=== PATIENT | male | born 1960 | race Caucasian/White ===

== ENCOUNTER 2019-09-24 23:32 | Emergency (ER) | payer BC ==
[2019-09-24 23:59] VITALS: BP 141/77; PULSE 99
[2019-09-25] MEDS ORDERED: Nitrofurantoin Monohydrate/Macrocrystalline 100 MG Cap PO ONE (00:07)
--- NOTE | 2019-09-25 00:16 | EDM.PDOC ---
ED HPI GENERAL MEDICAL PROBLEM - General Chief Complaint: Genitourinary Problem Stated Complaint: frequent urination Time Seen by Provider: 09/24/19 23:35 Source of Information: Reports: Patient, Old Records ([facility] chart/EMR) History Limitations: Reports: No Limitations - History of Present Illness INITIAL COMMENTS - FREE TEXT/NARRATIVE: The patient drove himself to the emergency room via private automobile for evaluation of increased urinary frequency and burning since about 17:00 hours this afternoon. He denies any known exposure to infection, gross hematuria, colic, etc. with no symptoms typical of his previous urolithiasis. He has had some fever and chills with temperature of 99.0 prior to arrival, however he has not taken any medications to this point. No recent history of abdominal pain , heartburn, nausea, diarrhea, melena, gross hematochezia, or any food intolerance, including fatty foods, etc.. The patient denies any chest pain/ pressure, heart flutter, dizziness, orthostasis, orthopnea, diaphoresis, paresthesias, recent decreased exercise tolerance, or any other anginal-type symptoms. The patient also denies any recent cough, wheezing, dyspnea, etc.. He has had occasional low back pain during the last couple of days, however. Onset: Today, Gradual Onset Date: 09/25/19 Onset Time: 17:00 Duration: Constant, Getting Worse Location: Reports: Back. Denies: Head, Face, Neck, Chest, Abdomen, Pelvis, Lower Extremity, Left, Lower Extremity, Right, Radiates to Quality: Reports: Ache, Burning, Same as Previous Episode Severity: Mild Improves with: Reports: None Worsens with: Reports: None Context: Reports: Other (As above). Denies: Sick Contact, Trauma Associated Symptoms: Reports: Fever/Chills. Denies: Confusion, Chest Pain, Cough, Diaphoresis, Headaches, Loss of Appetite, Malaise, Nausea/Vomiting, Rash , Shortness of Breath, Weakness Treatments MAGNETIC TAPE WINDER: Reports: Other (see below) (None) Lower Back Pain Score (Numeric/FACES): 2 - Related Data Allergies Allergy/AdvReac Type Severity Reaction Status Date / Time bacitracin Allergy Rash Verified 09/24/19 23:51 [From Neosporin ([id number])] latex Allergy Rash Verified 09/24/19 23:51 neomycin Allergy Rash Verified 09/24/19 23:51 [From Neosporin ([id number])] polymyxin B Allergy Rash Verified 09/24/19 23:51 [From Neosporin ([id number])] corn pollen Allergy Other Uncoded 09/24/19 23:51 Home Meds: Home Meds Aspirin 81 mg PO DAILY 05/24/16 [History] Hydrochlorothiazide 25 mg PO DAILY 05/24/16 [History] Lovastatin [Mevacor] 40 mg PO BEDTIME 05/24/16 [History] Naproxen Sodium [Aleve] 440 mg PO BID 05/24/16 [History] Quinapril [Accupril] 40 mg PO DAILY 05/24/16 [History] amLODIPine Besylate [Amlodipine Besylate] 10 mg PO DAILY 05/24/16 [History] Ubidecarenone [Coq-10] 100 mg PO DAILY 09/24/19 [History] Nitrofurantoin Monohyd/M-Cryst [Macrobid 100 mg Capsule] 100 mg PO BIDMEALS #14 capsule 09/25/19 [Rx] Past Medical History HEENT History: Reports: Allergic Rhinitis, Impaired Vision, Other (See Below). Denies: Cataract, Glaucoma, Hard of Hearing, Macular Degeneration, Otitis Media , Retinal Detachment Other HEENT History: hyperope, wears glasses Cardiovascular History: Reports: Arrhythmia, Heart Murmur, High Cholesterol, Hypertension, Other (See Below). Denies: Afib, Aneurysm, Blood Clots/VTE/DVT, CAD, Heart Failure, KY, PVD, Syncope Other Cardiovascular History: Dyslipidemia with secondary fatty liver, borderline incomplete right bundle branch block, PVCs with exercise, mild aortic valve stenosis by clinical exam Respiratory History: Reports: Asthma, Bronchitis, Recurrent, Intubation, Previous, Pulmonary Fibrosis. Denies: COPD, Intubation, Difficult, PE, Pneumonia, Recurrent, Pneumothorax, Sleep Apnea, TB Gastrointestinal History: Reports: Colon Polyp, Diverticulosis, Fatty Liver, Gastritis, GERD, Helicobacter Pylori, PUD, Other (See Below). Denies: Celiac Disease, Cholelithiasis, Fecal Incontinence, Hepatitis, Hiatal Hernia, Inflammatory Bowel Disease, Irritable Bowel Syndrome, Jaundice, Pancreatitis Other Gastrointestinal History: Peptic ulcer disease and GERD with history of positive H. pylori infection on 07/31/01, pedunculated adenomatous colonic polyp at 20 cm and mild sigmoid diverticulosis by colonoscopy on 10/25/05, fatty liver with LFTs elevation, mild colitis by colonoscopy on 10/24/06. Small bilateral fatty infiltrated inguinal hernias by CT scan in 2016 as below. Genitourinary History: Reports: BPH, Prostate Disorder, Renal Calculus, Other ( See Below). Denies: Acute Renal Failure, Chronic Renal Insuffiency, Retention, Urinary, STD, Urinary Incontinence, UTI, Recurrent Other Genitourinary History: Left-sided urolithiasis by CT scan with additional Left-sided distal urolithiasis on 05/24/16 and previous Right-sided urolithiasis in about 1979 with both stones passing spontaneously, erectile dysfunction Musculoskeletal History: Reports: Arthritis, Back Pain, Chronic, Fracture, Gout , Neck Pain, Chronic, Osteoarthritis. Denies: Amputation, RA, SLE Other Musculoskeletal History: Bilateral elbow fractures at about age 12, hyperuricemia, idiopathic myositis with CPK elevation Neurological History: Reports: None. Denies: Cerebral Aneurysms, Concussion, CVA, Frequent Repetitive Habits (TICS), Headaches, Chronic, Head Trauma, Neuropathy, Peripheral, Parkinson's, Seizure, TIA Psychiatric History: Reports: Anxiety, Depression. Denies: Abuse, Victim of, ADD, ADHD, Addiction, Psych Hospitalization(s), Psychosis, PTSD, Suicide Attempt Endocrine/Metabolic History: Reports: Obesity/BMI 30+. Denies: Diabetes, Type I , Diabetes, Type II, Diabetes Mellitus, Type 3c, Hypothyroidism, IDDM Hematologic History: Reports: Polycythemia. Denies: Anemia, Blood Transfusion(s ) Immunologic History: Reports: None. Denies: AIDS, HIV, SLE Oncologic (Cancer) History: Reports: None. Denies: Basal Cell Carcinoma, Bladder, Colon, Hodgkin's Lymphoma, Leukemia, Lymphoma, Malignant Melanoma, Non- Hodgkin's Lymphoma, Prostate, Squamous Cell Carcinoma Dermatologic History: Reports: Other (See Below). Denies: Eczema, Psoriasis Other Dermatologic History: lentigo - Infectious Disease History Infectious Disease History: Reports: Chicken Pox, Helicobacter Pylori, Measles, Mumps, Shingles. Denies: C-Difficile, Meningitis, Mononucleosis, MRSA, Pertussis (Whooping Cough), Rubella, Scarlet Fever, TB, VRE Other Infectious Disease History: Right frontal head shingles in about 2011 - Past Surgical History Head Surgeries/Procedures: Reports: None HEENT Surgical History: Reports: None. Denies: Adenoidectomy, Cataract Surgery , Eye Surgery, Laser Surgery, LASIK, Myringotomy w Tube(s), Naso-Sinus Surgery, Oral Surgery, Tonsillectomy Cardiovascular Surgical History: Reports: None. Denies: Varicose Respiratory Surgical History: Reports: None. Denies: Thoracentesis GI Surgical History: Reports: Colonoscopy, EGD, Polypectomy, Other (See Below). Denies: Appendectomy, Cholecystectomy, Hernia, Abdominal, Hernia, Inguinal, Hernia Repair/Other Other GI Surgeries/Procedures: Last colonoscopy and EGD in about 2012 with previous colonoscopy on 10/24/06 and EGD and colonoscopy on 10/25/05. Male Surgical History: Reports: Circumcision, Other (See Below). Denies: TURP-Transurethral Resection of Prostate, Vasectomy Other Male Surgeries/Procedures: Circumcision as an infant Endocrine Surgical History: Reports: None Neurological Surgical History: Reports: None. Denies: C-Spine, Discectomy, Laminectomy, Lumbar Spine, Sacral Spine, Spinal Fusion, Thoracic Spine, Vertebroplasty Musculoskeletal Surgical History: Reports: Arthroscopic Knee, Arthroscopic Procedure, Other (See Below). Denies: Carpal Tunnel, Ganglion Cyst, Joint Replacement, ORIF, Shoulder Surgery Other Musculoskeletal Surgeries/Procedures:: Right knee arthroscopic medial meniscal repair on 06/08/03. Left knee arthroscopic meniscal repair on 05/17/16. Oncologic Surgical History: Reports: None Dermatological Surgical History: Reports: None - Past Imaging History Past Imaging History: Reports: CAT Scan (CT scan of the abdomen and pelvis using renal stone protocol on 05/24/16.), PFT (PFTs on 01/02/05 and 08/04/06), Ultrasound (Abdominal Aortic ultrasound on 11/05/08, abdominal ultrasound on 05/01) Social & Family History - Family History Cardiac: Reports: Aneurysm, Bypass, CAD, Heart Murmur, [place], Pacemaker, Other ( See Below) Other Cardiac Family History: Father with fatal KY at age 76 during postoperative AAA repair, mother with fatal KY at age 67, mother had pacemaker, maternal aunts x3 with fatal KY in her 60s, maternal uncle x3 with fatal KY in her 60s, paternal uncle with CABG in his 50s and mechanical valve replacement, Respiratory: Reports: COPD, Other (See Below) Other Respiratory Family Hisory: Mother with COPD likely secondary to tobacco use Neurological: Reports: CVA, TIA, Other (See Below) Other Neurological Family History: Father with CVA/TIA in his 70s Oncologic: Reports: Colon, Lung, Prostate, Other (See Below) Other Oncologic Family History: Brother with fatal metastatic lung cancer at age 62 with previous history of tobacco use. Father with colon cancer in his 60s , maternal aunt with fatal colon cancer in her 50s, dad with prostate cancer - Tobacco Use Smoking Status *Q: Never Smoker Tobacco Use Within Last Twelve Months: No Used Tobacco, but Quit: No Smoking Cessation Information Provided To Patient: No Second Hand Smoke Exposure: No Second Hand Smoke Education Provided: No - Caffeine Use Caffeine Use: Reports: Soda (2 sodas per week). Denies: Coffee, Energy Drinks, Tea - Alcohol Use Alcohol Use History: Yes Days Per Week of Alcohol Use: 0 Number of Drinks Per Day: 2 Number of Drinks Per Day Comment: Usually beer about once per month. No previous DWIs, problems with alcohol abuse, etc. Total Drinks Per Week: 0 Alcohol Use in Last Twelve Months: Yes Alcohol Use Frequency: Monthly - Recreational Drug Use Recreational Drug Use: No Drug Use in Last 12 Months: No Recreational Drug Type: Denies: Amphetamines (Speed), Cocaine, Heroin, Inhalants (Glues, Solvents, Aerosols), LSD (Acid), Marijuana/Hashish, Methamphetamine, Morphine, Oxycodone - Living Situation & Occupation Living situation: Reports: (1996. 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 ED EXAM, RENAL/ - Physical Exam Exam: See Below Exam Limited By: No Limitations General Appearance: Alert, WD/WN, No Apparent Distress Head: Atraumatic, Normocephalic Neck: Normal Inspection, Supple, Non-Tender, Full Range of Motion. No: Lymphadenopathy (L), Lymphadenopathy (R), Thyromegaly Respiratory/Chest: No Respiratory Distress, Lungs Clear, Normal Breath Sounds, No Accessory Muscle Use, Chest Non-Tender Cardiovascular: Normal Peripheral Pulses, Regular Rate, Rhythm, No Edema, No Gallop, No JVD, No Murmur, No Rub. No: Gallop/S3, Gallop/S4, Friction Rub GI/Abdominal: Normal Bowel Sounds, Soft, Non-Tender, No Organomegaly, No Distention, No Abnormal Bruit, No Mass, Other (Obese). No: Guarding (Male) Exam: Deferred Rectal (Males) Exam: Deferred Back Exam: Normal Inspection, Full Range of Motion. No: CVA Tenderness (L), CVA Tenderness (R), Muscle Spasm Extremities: Normal Inspection, Normal Range of Motion, Non-Tender, No Pedal Edema, Normal Capillary Refill. No: Zac's Sign Neurological: Alert, Oriented, CN II-XII Intact, Normal Cognition, Normal Gait, No Motor/Sensory Deficits Psychiatric: Normal Affect, Normal Mood Skin Exam: Warm, Dry, Intact, Normal Color, No Rash. No: Diaphoretic, Wound/ Incision Lymphatic: No Adenopathy Course - Vital Signs Last Recorded V/S: Last Vital Signs Temp 37.4 C 09/24/19 23:43 Pulse 99 09/24/19 23:59 Resp 16 09/24/19 23:43 BP 141/77 H 09/24/19 23:59 Pulse Ox 99 09/24/19 23:43 Vital Signs - 24 hr 09/24/19 09/24/19 23:43 23:59 Temperature [ 37.4 C Oral] Pulse, 106 H 99 Peripheral [ Pulse Oximetry] Respiratory 16 Rate Blood Pressure 176/80 H 141/77 H [Left Upper Arm ] O2 Sat by Pulse 99 Oximetry - Orders/Labs/Meds Orders: Active Orders 24 hr Category Date Time Status CULTURE URINE [RM] Routine Lab 09/24/19 23:40 Received Obtain Past Medical Record [OM.PC] Routine Oth 09/24/19 23:38 Active Labs: Laboratory Tests 09/24/19 Range/Units 23:40 Specimen Type Urincc Urine Color Yellow Urine Appearance Clear Urine pH 7.5 (5.0-9.0) Ur Specific [place] 1.020 (1.005-1.030) Urine Protein Negative (NEGATIVE) mg/dL Urine Glucose (UA) Negative (NEGATIVE) mg/dL Urine Ketones Negative (NEGATIVE) mg/dL Urine Occult Blood Trace-lysed H (NEGATIVE) Urine Nitrite Negative (NEGATIVE) Urine Bilirubin Negative (NEGATIVE) Urine Urobilinogen 0.2 (0.2-1.0) E.U./dL Ur Leukocyte Esterase Small H (NEGATIVE) Urine RBC 5-10 H /HPF Urine WBC 10-20 H /HPF Ur Epithelial Cells Few /LPF Urine Bacteria Rare (NONE TO FEW) /HPF Urine specimen set up for culture and sensitivity. Meds: Medications Discontinued Medications Generic Name Dose Route Start Last Admin Trade Name Freq PRN Reason Stop Dose Admin Nitrofurantoin Macrocrystals 100 mg 09/25/19 00:07 Macrobid PO 09/25/19 00:08 ONETIME ONE - Radiology Interpretation Free Text/Narrative:: None Departure - Departure Time of Disposition: 00:40 Disposition: Home, Self-Care 01 Condition: Good Clinical Impression: UTI, Urinary tract infectious disease, Peptic reflux disease Osteoarthritis Qualifiers: Osteoarthritis location: multiple joints Osteoarthritis type: primary Qualified Code(s): M15.0 - Primary generalized (osteo)arthritis Urolithiasis Qualifiers: Urinary calculus location: lower urinary tract Qualified Code(s): N21.9 - Calculus of lower urinary tract, unspecified Hyperlipidemia Qualifiers: Hyperlipidemia type: unspecified Qualified Code(s): E78.5 - Hyperlipidemia, unspecified Hypertension Qualifiers: Hypertension type: essential hypertension Qualified Code(s): I10 - Essential ( primary) hypertension - Discharge Information *PRESCRIPTION DRUG MONITORING PROGRAM REVIEWED*: Not Applicable *COPY OF PRESCRIPTION DRUG MONITORING REPORT IN PATIENT DONITA: Not Applicable Prescriptions: Nitrofurantoin Monohyd/M-Cryst [Macrobid 100 mg Capsule] 100 mg PO BIDMEALS #14 capsule Instructions: Urinary Tract Infection, Adult, [id number] Referrals: Jacoby Nye PA [Primary Care Provider] - Forms: ED Department Discharge Additional Instructions: 1. Followup with your regular provider in 7-10 days as directed for reevaluation and recommended repeat urine test with additional culture and sensitivity. Bring these discharge instructions with you to that visit. 2. Tylenol 650 mg by mouth every 4 hours when necessary as directed. 3. Encourage oral fluids, including cranberry juice, etc. as discussed 4. Continue to observe your blood pressures closely through your regular provider 5. Pyridium 200 mg by mouth 3 times per day as needed for urinary burning on the #6, emergency room prescription. Caution: Citra staining urine as discussed. 6. Immediately after this visit verify that your cellular telephone's voicemail has been activated and is empty. Also verify that your home telephone 's answering machine is operating properly and has space to receive messages. Note that it is sometimes necessary for us to be able to contact you at a later date to discuss your medical care. 7. Please remember that we are ALWAYS here for you and want to answer any questions you may have. Feel free to call the hospital any time and we call you back WADE. Sepsis Event Note - Evaluation Sepsis Screening Result: No Definite Risk - Focused Exam Vital Signs: Vital Signs Temp Pulse Resp BP Pulse Ox 09/24/19 23:59 99 141/77 H 09/24/19 23:43 37.4 C 106 H 16 176/80 H 99 Date Exam was Performed: 09/25/19 Time Exam was Performed: 00:23 - Problem List & Annotations (1) UTI, Urinary tract infectious disease SNOMED Code(s): 23082780 Code(s): N39.0 - URINARY TRACT INFECTION, SITE NOT SPECIFIED Status: Acute Priority: High Onset Date: 09/24/19 Annotation/Comment:: Initial dose of Macrobid given in the emergency room with subsequent E-prescription for an additional 7 days of therapy. Emergency room prescription of Pyridium also provided. Oral fluids are to be encouraged. Close follow-up by regular provider as per discharge instructions. He did not want to have a work excuse. (2) Hyperlipidemia SNOMED Code(s): 19769610 Code(s): E78.5 - HYPERLIPIDEMIA, UNSPECIFIED Status: Chronic Priority: Medium Annotation/Comment:: Currently under therapy. Continue to observe by his regular provider. Weight loss in moderation as above. Qualifiers: Hyperlipidemia type: unspecified Qualified Code(s): E78.5 - Hyperlipidemia , unspecified (3) Hypertension SNOMED Code(s): 42476182 Code(s): I10 - ESSENTIAL (PRIMARY) HYPERTENSION Status: Chronic Priority : Medium Annotation/Comment:: Mildly elevated in the emergency room. Continue to observe closely by his regular provider. Qualifiers: Hypertension type: essential hypertension Qualified Code(s): I10 - Essential (primary) hypertension (4) Osteoarthritis SNOMED Code(s): 285739730 Code(s): M19.90 - UNSPECIFIED OSTEOARTHRITIS, UNSPECIFIED SITE Status: Chronic Priority: Medium Annotation/Comment:: Otherwise stable by history. Qualifiers: Osteoarthritis location: multiple joints Osteoarthritis type: primary Qualified Code(s): M15.0 - Primary generalized (osteo)arthritis (5) Peptic reflux disease SNOMED Code(s): 786408673 Code(s): K21.9 - GASTRO-ESOPHAGEAL REFLUX DISEASE WITHOUT ESOPHAGITIS Status: Chronic Priority: Medium Annotation/Comment:: Stable by history with previous H. pylori infection as above. (6) Urolithiasis SNOMED Code(s): 22245767, 126616262 Code(s): N20.9 - URINARY CALCULUS, UNSPECIFIED Status: Chronic Priority: Medium Onset Date: 05/24/16 Annotation/Comment:: No colic or UTI symptoms at this time. Oral fluids to be continued on a long-term basis as above. Qualifiers: Urinary calculus location: lower urinary tract Qualified Code(s): N21.9 - Calculus of lower urinary tract, unspecified; N21 - Calculus of lower urinary tract (7) Low back pain SNOMED Code(s): 619241257 Code(s): M54.5 - LOW BACK PAIN Status: Acute Priority: High Onset Date : ~07/23/18 Annotation/Comment:: Mild exacerbation during the last couple of days without injury. Note previous epidural steroid injections. Observe for now. No colic as above. Qualifiers: Chronicity: acute Back pain laterality: right Sciatica presence: without sciatica Qualified Code(s): M54.5 - Low back pain - Problem List Review Problem List Initiated/Reviewed/Updated: Yes - My Orders Last 24 Hours: My Active Orders 09/24/19 23:38 Obtain Past Medical Record [OM.PC] Routine 09/24/19 23:40 CULTURE URINE [RM] Routine - Assessment/Plan Last 24 Hours: My Active Orders 09/24/19 23:38 Obtain Past Medical Record [OM.PC] Routine 09/24/19 23:40 CULTURE URINE [RM] Routine Assessment:: As above Plan: As above. Extensive precautions were given to the patient, who is in agreement with the treatment plan. See Patient Instructions for further treatment and plan.
== END 2019-09-25 00:36 | disposition home or self-care (01) ==
LOC: LL.ED 23:32
DX: N39.0 Urinary tract infection, site not specified (principal); N21.9 Calculus of lower urinary tract, unspecified; K27.9 Peptic ulcer, site unspecified, unspecified as acute or chronic, without hemorrhage or perforation; M89.49 Other hypertrophic osteoarthropathy, multiple sites; E78.5 Hyperlipidemia, unspecified; I10 Essential (primary) hypertension; J45.909 Unspecified asthma, uncomplicated; Z88.1 Allergy status to other antibiotic agents; Z91.040 Latex allergy status; Z91.048 Other nonmedicinal substance allergy status; Z79.82 Long term (current) use of aspirin; Z79.899 Other long term (current) drug therapy
CPT/HCPCS: 81001; 87086; 87088; 87186; 99283; A9270

== ENCOUNTER 2025-08-21 07:47 | Emergency (ER) | payer BC ==
[2025-08-21 08:14] LABS: BASOPHILS ABSOLUTE AUTO 0.04 K/uL (0.00-0.20); BASOPHILS PERCENT AUTO 0.2 % (0.0-2.0); EOSINOPHILS ABSOLUTE AUTO 0.03 K/uL (0.00-0.50); EOSINOPHILS PERCENT AUTO 0.1 % (0.0-5.0); IMMATURE GRAN ABSOLUTE AUTO 0.04 10^3/uL (0.00-0.04); IMMATURE GRAN PERCENT AUTO 0.2 % (0.0-0.4); LYMPHOCYTES ABSOLUTE AUTO 1.00 K/uL (0.50-3.50); LYMPHOCYTES PERCENT AUTO 4.6 % (10.0-50.0); MONOCYTES ABSOLUTE AUTO 1.26 K/uL (0.00-1.00); MONOCYTES PERCENT AUTO 5.8 % (2.0-14.0); NEUTROPHILS ABSOLUTE AUTO 19.28 K/uL (1.40-7.00); NEUTROPHILS PERCENT AUTO 89.1 % (45.0-80.0); PLATELET COUNT,PLT 238 K/uL (150-350); RED BLOOD CELL COUNT 5.79 M/uL (4.33-5.41); RED CELL DISTRIBUTION WIDTH 13.4 % (11.2-14.1); WHITE BLOOD CELL COUNT,WBC 21.7 K/uL (4.0-10.2)
[2025-08-21 08:22] LABS: APPEARANCE,URINE CLEAR; GLUCOSE,URINE NEGATIVE (NEGATIVE); OCCULT BLOOD,URINE TRACE-INTACT (NEGATIVE)
[2025-08-21 08:38] LABS: ALANINE AMINOTRANSFERASE,ALT 35.0 U/L (12-78); ASPARTATE AMNIOTRANSFERASE,AST 17.0 U/L (15-37); BILIRUBIN TOTAL 0.9 mg/dL (0.2-1.0); BLOOD UREA NITROGEN,BUN 16.0 mg/dL (7-18); CARBON DIOXIDE,CO2 30.6 mmol/L (21.0-32.0); CHLORIDE,CL 102.0 mmol/L (98-107); CREATININE 1.27 mg/dL (0.51-1.17); EST CRCL DRUG DOSING (CG) 66.41 mL/min; GLUCOSE RANDOM 111.0 mg/dL (70-99); POTASSIUM,K 4.1 mmol/L (3.5-5.1); PROTEIN TOTAL,TP 7.7 g/dL (6.4-8.2); SODIUM,NA 142.0 mmol/L (136-145)
[2025-08-21] MEDS: Lactated Ringers 1,000 ML IV ONE (09:01)
[2025-08-21 09:08] LABS: ESTIMATED GFR 63.0 mL/min (>=60)
[2025-08-21] MEDS ORDERED: Iopamidol 612 MG/ML 100 ML Bottle IVPUSH ONE ×2 (10:24→10:26)
[2025-08-21] MEDS: Iopamidol 612 MG/ML 100 ML Bottle ONE (10:27)
[2025-08-21] MEDS: Take Home: Ciprofloxacin HCl 500 MG, 6 Tab Pack PO ONE (11:01)
[2025-08-21] MEDS: Sodium Chloride 0.9% 10 ML Syringe FLUSH PRN (11:01)
[2025-08-21] MEDS: Take Home: Tamsulosin HCl 0.4 MG, 6 Cap Pack PO ONE (11:01)
[2025-08-21 11:43] VITALS: BP 126/86; PULSE 89
== END 2025-08-21 11:25 | disposition home or self-care (01) ==
LOC: LL.ED 07:47
DX: N41.9 Inflammatory disease of prostate, unspecified (principal); I10 Essential (primary) hypertension; E78.00 Pure hypercholesterolemia, unspecified; K21.9 Gastro-esophageal reflux disease without esophagitis; Z88.8 Allergy status to other drugs, medicaments and biological substances; Z91.040 Latex allergy status; Z91.018 Allergy to other foods; Z79.82 Long term (current) use of aspirin; Z79.899 Other long term (current) drug therapy; Z79.84 Long term (current) use of oral hypoglycemic drugs
CPT/HCPCS: 36415; 74177; 80053; 81001; 85025; 96361; 96374; 99284; 99284-25; A9270-GY; J0696; J7120; Q9967